=== PATIENT | female | born 1945 | race Caucasian/White ===

== ENCOUNTER 2023-11-22 16:28 | Inpatient (IN) | payer MEDICARE, SELFPAY ==
--- NOTE | ~2023-11-22 | CT_ITS ---
EXAMINATION: CT HEAD WITHOUT CONTRAST CLINICAL INFORMATION: Unwitnessed mechanical fall. Blunt head trauma without loss of consciousness, significant head injury and posttraumatic headache. COMPARISON: None available. TECHNIQUE: Contiguous axial imaging was performed from the skull base to vertex without intravenous administration of contrast. This CT examination was performed using dose optimization techniques as appropriate, variously including the following: *Automated exposure control *Adjustment of mA and/or kV according to patient size (this includes techniques or standardized protocols for targeted exams where dose is matched to indication/reason for exam; i.e. extremities or head) *Use of iterative reconstruction technique DLP: 789 mGy-cm FINDINGS: Ventricles, sulci and cisterns are dilated, including mild disproportional ventriculomegaly. Wedge-shaped chronic infarct is seen in inferior lateral left cerebellum. A parenchymal cyst is seen in anterior right temporal lobe, measuring 1.4 cm in AP diameter, 1.0 cm in width, 1.0 cm in vertical height. . There is no midline shift, no abnormal intra- or extra- axial fluid accumulation. Lyles and white matter differentiation is normal. Bone window images show no evidence of skull fracture. CT/CT head/brain wo IV con IMPRESSION: 1. Age related cerebral atrophy and mild disproportional ventriculomegaly. 2. No intracranial hemorrhage or skull fracture is seen. 3. No evidence of space occupying lesion could be found. 4. Chronic inferior lateral left cerebellar infarct. 5. 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 6. The current plain CT scan of the brain shows no diagnostic evidence of acute cerebral infarction. Electronically signed by: William Carlisle MD 11/23/2023 03:52 PM EDT
--- NOTE | ~2023-11-22 | CT_ITS ---
EXAMINATION: CT CERVICAL SPINE WITHOUT CONTRAST CLINICAL INFORMATION: Unwitnessed mechanical fall, neck injury and pain COMPARISON: None available. TECHNIQUE: Multiple 2.0 mm axial images were obtained from base of skull to T1 levels without IV contrast enhancement. Sagittal and coronal 2.0 mm bone window images were reconstructed from axial image data. This CT examination was performed using dose optimization techniques as appropriate, variously including the following: *Automated exposure control *Adjustment of mA and/or kV according to patient size (this includes techniques or standardized protocols for targeted exams where dose is matched to indication/reason for exam; i.e. extremities or head) *Use of iterative reconstruction technique DLP: 283 mGy-cm FINDINGS: C1/C2: Bony structures are intact with normal alignment. There is no spinal stenosis. C2/C3: Bony structures are intact with normal alignment. There is no spinal stenosis. Bilateral C2/C3 neuroforamina are patent. Bilateral apophyseal joints are intact with normal alignment. C3/C4: Bony structures are intact with normal alignment. There is no spinal stenosis. Bilateral C3/C4 neuroforamina are patent. Bilateral apophyseal joints are intact with normal alignment. C4/C5: Bony structures are intact with normal alignment. There is no spinal stenosis. Bilateral C4/C5 neuroforamina are patent. Bilateral apophyseal joints are intact with normal alignment. C5/C6: Bony structures are intact with normal alignment. There is moderate decrease in intervertebral disc height. There is no spinal stenosis. Bilateral C5/C6 neuroforamina are mildly stenosed. Bilateral apophyseal joints are intact with normal alignment. C6/C7: Bony structures are intact with normal alignment. There there is marked decrease in intervertebral disc heights. Is no spinal stenosis. Bilateral C6/C7 neuroforamina are patent. Bilateral apophyseal joints are intact with normal alignment. C7/T1: Bony structures are intact with normal alignment. There is no spinal stenosis. Bilateral C7/T1 neuroforamina are patent. Bilateral apophyseal joints are intact with normal alignment. CT/CT cervical spine wo IV con IMPRESSION: 1. No evidence of acute fracture or dislocation. 2. Moderate degenerative disc disease at C5/C6 and C6/C7. 3. Mild bilateral C5/C6 neural foraminal stenosis. Fleischner guidelines were followed. Electronically signed by: William Carlisle MD 11/23/2023 04:05 PM EDT RP
--- NOTE | ~2023-11-22 | XR_ITS ---
EXAMINATION: XR BILATERAL HIPS WITH AP PELVIS CLINICAL INFORMATION: Unwitnessed mechanical fall COMPARISON: None available. TECHNIQUE: AP view of the pelvis and single views of each hip were obtained. FINDINGS: BONES: Bony structures are intact. There is no focal bone destruction or periosteal reaction seen. JOINTS: Alignment of hip joint is normal. SOFT TISSUE: Soft tissue is normal. No radiopaque foreign body or abnormal air collection is seen. XR/XR hips ARI min 3V IMPRESSION: 1. Normal pelvis x-ray. No fracture or dislocation is seen. 2. Normal x-ray of the right and left hips. No fracture or dislocation or signs of avascular necrosis are seen. Electronically signed by: William Carlisle MD 11/23/2023 03:21 PM EDT
[2023-11-22 17:42] VITALS: BMI 24.0
[2023-11-22 17:43] VITALS: BP 133/92; PULSE 100; RESP 18; TEMP 36.4; O2SAT 96
--- NOTE | 2023-11-22 18:11 | HO.PM.IMCN ---
History of Present Illness Data of Consult Service Date: 11/22/23 Primary Care Provider: Adrian Mata [facility] Reason for consult: Admission H&P Pt is a 78-year-old female with a PMH significant for?schizoaffective disorder, bipolar type, history of multiple inpatient psychiatric hospitalizations, and hx of ECT who is admitted to [facility] after initially presenting to [facility] from assisted living where she had been refusing her medications and having increased verbal agitation with residents and staff. Patient was eventually placed on section 12. Throughout admission patient repeatedly declined medications and was verbally and physically aggressive towards staff and eventually had to be placed in physical restraints. Guardianship was aborted to her brother. Medical consult for admission H&P. ?Patient seen and examined in her room where she initially becomes agitated that there is no TV in her room. During interview and exam repeatedly asks if she can get a TV in her room. When told that that is not a possibility she states she is going to leave and go to a different facility where this is allowed. Patient denies any significant PMH and states she is not on any chronic medical prescriptions. Is unable to state when last saw a PCP for a regular checkup. Patient denies any acute medical complaints, including fever, chills, nausea, vomiting. No chest pain/pressure, palpitations. Denies shortness of breath or difficulty breathing. Labs from [facility] reviewed, grossly unremarkable at time of discharge. Review of Systems Review of Systems: Patient denies any acute medical complaints [facility] Medical History (Updated 11/22/23 @ 18:57 by NOY Arnold) Schizoaffective disorder Social History Household Members: None Housing: Assisted Living Facility Do you presently have visiting nurse or other home services: No Patient Tobacco Use Status: Never used Tobacco Smoked in Last 30 Days: No e-Cigarette/Vaping Use: Never Used Patient Interested in Nicotine Replacement: No Patient Given Instructions on How to Stop Smoking: No Second Hand Smoke Exposure: No Use of substances other than those prescribed or required for medical reasons: No Currently Displaying Signs/Symptoms of Drug Intoxication Withdrawal: No Any prior treatment program specific to substance use: No Have you been hit, kicked, punched, or otherwise hurt by someone within the past year? If so, by whom?: No Do you feel safe in your current relationship?: No Current Relationship Is there a partner from a previous relationship who is making you feel unsafe now?: No Are you made to feel afraid or neglected: No Advance Directives: No Advance Directives Information Provided: No Do you have a plan to hurt others: No Plan Recently lost weight without trying: Yes How much weight loss: 2-13 pounds Eating poorly because of decreased appetite: No Nutrition screen score: 3 Nutrition Risks: No Nutritional Risk Patient : No : No Poor oral hygiene: Yes Meds Allergies Allergy/AdvReac Type Severity Reaction Status Date / Time No Known Allergies Allergy Verified 11/22/23 16:59 Active Medications: Current Medications Acetaminophen (Acetaminophen 325 Mg Tablet) 650 mg PO Q6H PRN PRN Reason: Headache/Pain Mild Scale (1-3) Al Hydroxide/Mg Hydroxide (Magnesium Hydrox/Alum Hydrox 30 Ml Oral.Susp) 30 ml PO Q6H PRN PRN Reason: Heartburn/Nausea Magnesium Hydroxide (Milk Of Magnesia 30 Ml Oral.Susp) 30 ml PO DAILY PRN PRN Reason: Constipation Nicotine Polacrilex (Nicotine Polacrilex 2 Mg Gum) 2 mg BUCCAL Q2H PRN PRN Reason: Nicotine Cravings Trazodone HCl (Trazodone Hcl 50 Mg Tablet) 50 mg PO BEDTIME MRX1 PRN PRN Reason: Insomnia Home Medications ?Medication ?Instructions ?Recorded ?Confirmed ?Last Taken ?Type atorvastatin 40 mg tablet (Lipitor) 40 mg PO DAILY 11/22/23 11/22/23 Unknown History cetirizine 5 mg tablet 5 mg PO DAILY 11/22/23 11/22/23 Unknown History diphenhydramine HCl 25 mg capsule 25 mg PO Q6H PRN Itching 11/22/23 11/22/23 Unknown History (Benadryl) olanzapine 10 mg disintegrating 10 mg PO BEDTIME 11/22/23 11/22/23 Unknown History tablet olanzapine 5 mg disintegrating 5 mg PO DAILY 11/22/23 11/22/23 Unknown History tablet permethrin 5 % topical cream 1 appl topical 11/22/23 Unknown History (Elimite) triamcinolone acetonide 0.1 % 1 appl topical BID 11/22/23 11/22/23 Unknown History topical ointment valproic acid (as sodium salt) 250 750 mg PO Q12H 11/22/23 11/22/23 11/22/23 09:46 History mg/5 mL (5 mL) oral solution Physical Exam Vital Signs and Narrative: Vital Signs: Last Vital Signs Temp 97.5 F 11/22/23 17:43 Pulse 100 11/22/23 17:43 Resp 18 11/22/23 17:43 BP 133/92 H 11/22/23 17:43 Pulse Ox 96 11/22/23 17:43 O2 Del Method Room Air 11/22/23 17:43 BMI result Body Mass Index 24.0 Patient refused physical examination General: AOx3, no acute distress Resp: Not in acute respiratory distress, no accessory muscle use Neuro: Cranial nerves II-XII grossly intact bilaterally. Motor grossly intact bilaterally Psych: Mildly agitated Assessment and Plan (1) Medical clearance for psychiatric admission: Status: Acute Plan Pt is a 78-year-old female with a PMH significant for?schizoaffective disorder, bipolar type, history of multiple inpatient psychiatric hospitalizations, and hx of ECT who is admitted to [facility] after initially presenting to [facility] from assisted living where she had been refusing her medications and having increased verbal agitation with residents and staff. Patient was eventually placed on section 12. Throughout admission patient repeatedly declined medications and was verbally and physically aggressive towards staff and eventually had to be placed in physical restraints. Guardianship was aborted to her brother. Medical consult for admission H&P. Mood disorder Plan as per Psychiatry Patient otherwise has no known chronic medical conditions nor voices any acute medical complaints at this time. Will sign off. Thank you for allowing us to participate in the care of this patient. Please re-consult if any acute issue or need arises.
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
--- NOTE | 2023-11-22 22:36 | HO.PSYEVENT2 ---
Documented by User: Cecilia Alvarez APRN 11/22/23 22:37 Event Note Date of Service: 11/22/23 Psych On-Call Event Note: Ramy's order for Olanzapine implemented, PO or IM. Humberto to Feb 2024. Time Spent With Patient Time: Total time managing care of this patient today ____ minutes. Documented by User: Jose Mott MD 11/22/23 23:08 Event Note Date of Service: 11/22/23
[2023-11-22] MEDS: OLANZapine 10 MG VIAL IM (22:57)
--- NOTE | 2023-11-23 03:06 | PC.NURSE ---
Patient refused HS medication, refused Vital sign assessment, refused to sign belonging list, safety tool, treatment plan, and Notice of Rights for Temporary Involuntary Hospitalization. Patient has kacie Mccann's order, copy sent to communications scientist provider, ordered PRN Olanzapine 10 mg IM if patient refused HS PO Olanzapine 10 mg, administered as ordered with staffing support to stabilize injection site, will continue to monitor
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
[2023-11-23] MEDS: OLANZapine 10 MG VIAL 7.5 MG IM (10:02)
[2023-11-23 11:35] VITALS: BP 157/73; PULSE 104; RESP 20; TEMP 36.3; O2SAT 100
[2023-11-23 13:00] LABS: Glucose, Whole Blood 135 mg/dL (60-115)
--- NOTE | 2023-11-23 13:03 | PM.EVENT ---
Event Note Date of Service: 11/23/23 Event Note: Patient is a 78-year-old female who was admitted to [facility]. Rapid response called for unwitnessed fall in room. Patient reports she was was leaving the bathroom and ?rushing? to get to her walker when she slipped and fell backwards striking the back. Of her head on the wall patient reports mild occipital pain. Denies any neck, shoulder, hip pain. Patient denies any other musculoskeletal pain except for back of her head. No lightheadedness or dizziness preceding fall. Physical exam reveals preserved ROM of shoulders and hips. No tenderness to palpation of shoulders or hips bilaterally. Will get CT of head/brain and cervical spine, as well as x-ray of hips bilaterally. Will check orthostatics. Time Spent With Patient Time: Total time managing care of this patient today ____ minutes.
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
[2023-11-23 13:45] VITALS: BP 142/63; PULSE 84
--- NOTE | 2023-11-23 14:36 | PC.NURSE ---
Addendum entered and electronically signed by Nurys Dupree RN 11/23/23 14:59: Close observation initiated. Original Note: Loud noise heard from room followed by pt calling out from room. Pt found sitting on floor with back of head resting against wall. Pt reported she had been attempting to gunter to her walker which was next to her bed, and fell backwards towards wall. States she struck back of head against wall and slid down to floor. Initially reported headache and back of neck discomfort. Rapid response called and participating staff arrived on unit at 1250. VS 133/63, P 107, O2 stat 97% rm air. POC 135. Collar applied to neck by respiratory. Transferred to stretcher with assist of [address] scan of head, cervical spine, xrays bilateral hips completed, results pending. Orthostatic VS done upon return to unit. VS right upper arm supine 142/63 P 84 O2 Sat 95% rm air, sitting 140/65 P 87, O2 sat 97% rm air, standing 136/62 P 98 O2 sat% rm air. Reported slight unsteadiness upon standing. Denied pain at time of return to unit. Collar remains on until results available, pt compliant with this. plant operations coordinator, community outreach worker and director present at time of rapid response, aware of fall. Pt to be placed on 1:1 observation.
[2023-11-23] MEDS: Acetaminophen 325 MG TABLET 650 MG PO (15:09)
--- NOTE | 2023-11-23 18:33 | PC.NURSE ---
Adam Khan, updated on mood, meds administered today, fall, CT scan/xray results.
[2023-11-23] MEDS: OLANZapine 10 MG TABLET PO (19:52)
[2023-11-23] MEDS: Valproic Acid 250 MG CAPSULE 750 MG PO (19:52)
[2023-11-23] MEDS: Triamcinolone Acet 0.1 % Cream 15 GM TUBE 1 APPL TOPICAL (19:57)
[2023-11-23 20:00] VITALS: BP 119/60; PULSE 60; RESP 17; TEMP 36.6; O2SAT 95
[2023-11-24] MEDS: OLANZapine 10 MG VIAL IM (10:00)
--- NOTE | 2023-11-24 17:53 | HO.PSYCHPN ---
Subjective Subjective Date of Service: 11/24/23 Reason For Visit: psychosis Interim History: Met with patient; discussed with team Patient irritable, continues to refuse Zyprexa p.o. and has been receiving Zyprexa IM.; remains on a one-to-one for confusion. Yelling out rape intermittently throughout the day. Sleeping on approach and technical proposal writer considered it in patient's best interest to let her sleep Mental Status Exam Mental Status Exam Narrative: Appearance: wearing casual clothing, appears older than stated age. IN NAD Behavior: very guarded and hostile Psychomotor: some agitation Speech: clear, hyperverbal not pressured, spontaneous TP: Can be goal oriented TC: wanting to leave the hospital paranoid about staff here Mood: Irritable Affect: Irritable SI: denies HI: denies VH/AH: appears internally preoccupied Delusions: paranoid delusions, Insight/judgment: impaired x 2. memory/cog: alert, oriented x 3. pending moca Diagnostics Vital Signs (24Hr): Vital Signs - 24 hr 11/23/23 20:00 Temperature 97.8 F Pulse Rate 60 Respiratory Rate 17 Blood Pressure 119/60 Pulse Oximetry 95 Oxygen Delivery Method Room Air BMI result Body Mass Index 24.0 Labs Labs: Laboratory Results - last 48 hr 11/23/23 12:53 POC Glucose 135 H Imaging Radiology Impressions: ITS Impressions Hip X-Ray 11/23/23 13:10 IMPRESSION: 1. Normal pelvis x-ray. No fracture or dislocation is seen. 2. Normal x-ray of the right and left hips. No fracture or dislocation or signs of avascular necrosis are seen. Electronically signed by: William Calrisle MD 11/23/2023 03:21 PM EDT RP Cervical Spine CT 11/23/23 13:27 IMPRESSION: 1. No evidence of acute fracture or dislocation. 2. Moderate degenerative disc disease at C5/C6 and C6/C7. 3. Mild bilateral C5/C6 neural foraminal stenosis. Fleischner guidelines were followed. Electronically signed by: William Carlisle MD 11/23/2023 04:05 PM EDT RP Head CT 11/23/23 13:27 IMPRESSION: 1. Age related cerebral atrophy and mild disproportional ventriculomegaly. 2. No intracranial hemorrhage or skull fracture is seen. 3. No evidence of space occupying lesion could be found. 4. Chronic inferior lateral left cerebellar infarct. 5. 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 6. The current plain CT scan of the brain shows no diagnostic evidence of acute cerebral infarction. Electronically signed by: William Carlisle MD 11/23/2023 03:52 PM EDT Medications Medications Current Medications Acetaminophen (Acetaminophen 325 Mg Tablet) 650 mg PO Q6H PRN PRN Reason: Headache/Pain Mild Scale (1-3) Last Admin: 11/23/23 15:09 Dose: 650 mg Al Hydroxide/Mg Hydroxide (Magnesium Hydrox/Alum Hydrox 30 Ml Oral.Susp) 30 ml PO Q6H PRN PRN Reason: Heartburn/Nausea Atorvastatin Calcium (Atorvastatin Calcium 40 Mg Tablet) 40 mg PO DAILY [facility] Last Admin: 11/24/23 10:05 Dose: Not Given Loratadine (Loratadine 10 Mg Tablet) 10 mg PO DAILY [facility] Last Admin: 11/24/23 10:05 Dose: Not Given Magnesium Hydroxide (Milk Of Magnesia 30 Ml Oral.Susp) 30 ml PO DAILY PRN PRN Reason: Constipation Nicotine Polacrilex (Nicotine Polacrilex 2 Mg Gum) 2 mg BUCCAL Q2H PRN PRN Reason: Nicotine Cravings Olanzapine (Olanzapine 10 Mg Vial) 10 mg IM BID PRN PRN Reason: Paul order if po refused Last Admin: 11/24/23 10:00 Dose: 10 mg Olanzapine (Olanzapine 10 Mg Tablet) 10 mg PO BID [facility] Last Admin: 11/24/23 10:04 Dose: Not Given Trazodone HCl (Trazodone Hcl 50 Mg Tablet) 50 mg PO BEDTIME MRX1 PRN PRN Reason: Insomnia Triamcinolone Acetonide (Triamcinolone Acet 0.1 % Cream 15 Gm Tube) 1 appl TOPICAL BID [facility]; Protocol Last Admin: 11/24/23 10:05 Dose: Not Given Valproic Acid (Valproic Acid 250 Mg Capsule) 750 mg PO BID [facility] Last Admin: 11/24/23 10:05 Dose: Not Given Allergies Allergies Allergy/AdvReac Type Severity Reaction Status Date / Time No Known Allergies Allergy Verified 11/22/23 16:59 Assessment & Plan Assessment & Plan (1) Schizoaffective disorder, bipolar type: Status: Acute Code(s): F25.0 - Schizoaffective disorder, bipolar type Plan Mrs. Reid is a 78 year-old woman with hx of schizoaffective disorder bipolar type who was brought on section 12a from [facility] to [facility] due to 3 week increase in verbal agitation, paranoid delusions, calling police and refusing care in setting of stopping medications. She has temporary guardian- Adam Rod ([phone]) and Ramy'madhav. She is currently on depakote and olanzapine after coming off haldol due to limited benefit. Increase olanzapine 10mg po BID. continue depakote 750mg po BID. PLAN 1. Admit to S1, [id number], 5 minutes checks 2. increase olanzapine 10mg po BID- pt can't refused due to Ramy's, back up IM if needed 3. obtain collateral information 4. after care planning. Reason for continued inpatient stay Substantial Risk for: inability to function Time Spent With Patient Time: Total time managing care of this patient today ____ minutes.
[2023-11-24] MEDS: traZODone HCL 50 MG TABLET PO (20:13)
[2023-11-24] MEDS: OLANZapine 10 MG TABLET PO (20:13)
[2023-11-25] MEDS: Atorvastatin Calcium 40 MG TABLET PO (08:49)
[2023-11-25] MEDS: Loratadine 10 MG TABLET PO (08:49)
[2023-11-25 08:52] VITALS: BP 117/74; PULSE 85; RESP 16; TEMP 36.6; O2SAT 99
[2023-11-25] MEDS: OLANZapine 10 MG VIAL IM (09:06)
--- NOTE | 2023-11-25 18:36 | HO.PSYCHPN ---
Subjective Subjective Date of Service: 11/25/23 Reason For Visit: psychosis Interim History: Met with patient; discussed with team Patient remains irritable and refusing p.o. Zyprexa. Getting IM Zyprexa instead. On approach she said she has not good and demanded to know why she was in the hospital; patient had court order printed out and wanted to talk about it. Picker/Puller set down and talked about it with patient extensively, including medication regimen. During which time her irritability softened and she expressed gratitude for having it explained. Of note patient was a little more calm during the day, not yelling out rape. Self dialogue Ng throughout the day Mental Status Exam Mental Status Exam Narrative: Appearance: wearing casual clothing, appears older than stated age. IN NAD Behavior: very guarded and hostile Psychomotor: some agitation Speech: clear, hyperverbal not pressured, spontaneous TP: Can be goal oriented TC: wanting to leave the hospital paranoid about staff here Mood: not good Affect: Irritable SI: denies HI: denies VH/AH: appears internally preoccupied Delusions: paranoid delusions, Insight/judgment: impaired x 2. memory/cog: alert, oriented x 3. pending moca Diagnostics Vital Signs (24Hr): Vital Signs - 24 hr 11/25/23 08:52 Temperature 97.8 F Pulse Rate 85 Respiratory Rate 16 Blood Pressure 117/74 Pulse Oximetry 99 Oxygen Delivery Method Room Air BMI result Body Mass Index 24.0 Imaging Radiology Impressions: ITS Impressions Hip X-Ray 11/23/23 13:10 IMPRESSION: 1. Normal pelvis x-ray. No fracture or dislocation is seen. 2. Normal x-ray of the right and left hips. No fracture or dislocation or signs of avascular necrosis are seen. Electronically signed by: William Carlisle MD 11/23/2023 03:21 PM EDT RP Cervical Spine CT 11/23/23 13:27 IMPRESSION: 1. No evidence of acute fracture or dislocation. 2. Moderate degenerative disc disease at C5/C6 and C6/C7. 3. Mild bilateral C5/C6 neural foraminal stenosis. Fleischner guidelines were followed. Electronically signed by: William Carlisle MD 11/23/2023 04:05 PM EDT RP Head CT 11/23/23 13:27 IMPRESSION: 1. Age related cerebral atrophy and mild disproportional ventriculomegaly. 2. No intracranial hemorrhage or skull fracture is seen. 3. No evidence of space occupying lesion could be found. 4. Chronic inferior lateral left cerebellar infarct. 5. 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 6. The current plain CT scan of the brain shows no diagnostic evidence of acute cerebral infarction. Electronically signed by: William Carlisle MD 11/23/2023 03:52 PM EDT Medications Medications Current Medications Acetaminophen (Acetaminophen 325 Mg Tablet) 650 mg PO Q6H PRN PRN Reason: Headache/Pain Mild Scale (1-3) Last Admin: 11/23/23 15:09 Dose: 650 mg Al Hydroxide/Mg Hydroxide (Magnesium Hydrox/Alum Hydrox 30 Ml Oral.Susp) 30 ml PO Q6H PRN PRN Reason: Heartburn/Nausea Atorvastatin Calcium (Atorvastatin Calcium 40 Mg Tablet) 40 mg PO DAILY [facility] Last Admin: 11/25/23 08:49 Dose: 40 mg Loratadine (Loratadine 10 Mg Tablet) 10 mg PO DAILY [facility] Last Admin: 11/25/23 08:49 Dose: 10 mg Magnesium Hydroxide (Milk Of Magnesia 30 Ml Oral.Susp) 30 ml PO DAILY PRN PRN Reason: Constipation Nicotine Polacrilex (Nicotine Polacrilex 2 Mg Gum) 2 mg BUCCAL Q2H PRN PRN Reason: Nicotine Cravings Olanzapine (Olanzapine 10 Mg Vial) 10 mg IM BID PRN PRN Reason: Paul order if po refused Last Admin: 11/25/23 09:06 Dose: 10 mg Olanzapine (Olanzapine 10 Mg Tablet) 10 mg PO BID [facility] Last Admin: 11/25/23 09:09 Dose: Not Given Trazodone HCl (Trazodone Hcl 50 Mg Tablet) 50 mg PO BEDTIME MRX1 PRN PRN Reason: Insomnia Last Admin: 11/24/23 20:13 Dose: 50 mg Triamcinolone Acetonide (Triamcinolone Acet 0.1 % Cream 15 Gm Tube) 1 appl TOPICAL BID [facility]; Protocol Last Admin: 11/25/23 11:32 Dose: Not Given Valproic Acid (Valproic Acid 250 Mg Capsule) 750 mg PO BID [facility] Last Admin: 11/25/23 08:51 Dose: Not Given Allergies Allergies Allergy/AdvReac Type Severity Reaction Status Date / Time No Known Allergies Allergy Verified 11/22/23 16:59 Assessment & Plan Assessment & Plan (1) Schizoaffective disorder, bipolar type: Status: Acute Code(s): F25.0 - Schizoaffective disorder, bipolar type Plan Mrs. Reid is a 78 year-old woman with hx of schizoaffective disorder bipolar type who was brought on section 12a from [facility] to [facility] due to 3 week increase in verbal agitation, paranoid delusions, calling police and refusing care in setting of stopping medications. She has temporary guardian- Adam Rod ([phone]) and Ramy'madhav. She is currently on depakote and olanzapine after coming off haldol due to limited benefit. Increase olanzapine 10mg po BID. continue depakote 750mg po BID. PLAN 1. Admit to S1, [id number], 5 minutes checks 2. increase olanzapine 10mg po BID- pt can't refused due to Ramy's, back up IM if needed 3. obtain collateral information 4. after care planning. Patient educated on: diagnosis and medication risk/benefits Informed Consent: understands, does not understand and further education needed Reason for continued inpatient stay Substantial Risk for: inability to function Time Spent With Patient Time: Total time managing care of this patient today ____ minutes.
[2023-11-25] MEDS: Valproic Acid 250 MG CAPSULE 750 MG PO (20:20)
[2023-11-25] MEDS: OLANZapine 10 MG TABLET PO (20:20)
[2023-11-25 20:36] VITALS: BP 130/61; PULSE 75; RESP 16; TEMP 36.3; O2SAT 95
[2023-11-26 09:05] VITALS: BP 118/72; PULSE 86; RESP 17; TEMP 36.5; O2SAT 96
[2023-11-26] MEDS: OLANZapine 10 MG TABLET PO ×2 (09:18→20:17)
--- NOTE | 2023-11-26 09:33 | HO.PSYCHPN ---
Subjective Subjective Date of Service: 11/26/23 Reason For Visit: psychosis Subjective Notes: Section 12B Interim History: Slept all night. Pt hyperverbal stating that her brother exposed to her and friend when she was 13. Pt denies SI/HI. She reports she does not know why she is diagnosed with Bipolar disorder because she does not notice any symptoms. No insight into events leading to this admission and how her behavior is disruptive. Pt labile at times, firing this marketing copywriter but then asking if I will continue working with her. Somewhat paranoid towards staff. Review of Systems Review of Systems declines assessment Mental Status Exam Mental Status Exam Narrative: Appearance: wearing casual clothing, appears older than stated age. IN NAD Behavior: very guarded and hostile Psychomotor: some agitation Speech: clear, hyperverbal not pressured, spontaneous TP: Can be goal oriented TC: wanting to leave the hospital paranoid about staff here Mood: not good Affect: Irritable SI: denies HI: denies VH/AH: appears internally preoccupied Delusions: paranoid delusions, Insight/judgment: impaired x 2. memory/cog: alert, oriented x 3. pending moca Diagnostics Vital Signs (24Hr): Vital Signs - 24 hr 11/25/23 20:36 11/26/23 09:05 Temperature 97.3 F 97.7 F Pulse Rate 75 86 Respiratory Rate 16 17 Blood Pressure 130/61 118/72 Pulse Oximetry 95 96 Oxygen Delivery Method Room Air Room Air BMI result Body Mass Index 24.0 Imaging Radiology Impressions: ITS Impressions Hip X-Ray 11/23/23 13:10 IMPRESSION: 1. Normal pelvis x-ray. No fracture or dislocation is seen. 2. Normal x-ray of the right and left hips. No fracture or dislocation or signs of avascular necrosis are seen. Electronically signed by: William Carlisle MD 11/23/2023 03:21 PM EDT RP Cervical Spine CT 11/23/23 13:27 IMPRESSION: 1. No evidence of acute fracture or dislocation. 2. Moderate degenerative disc disease at C5/C6 and C6/C7. 3. Mild bilateral C5/C6 neural foraminal stenosis. Fleischner guidelines were followed. Electronically signed by: William Carlisle MD 11/23/2023 04:05 PM EDT RP Head CT 11/23/23 13:27 IMPRESSION: 1. Age related cerebral atrophy and mild disproportional ventriculomegaly. 2. No intracranial hemorrhage or skull fracture is seen. 3. No evidence of space occupying lesion could be found. 4. Chronic inferior lateral left cerebellar infarct. 5. 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 6. The current plain CT scan of the brain shows no diagnostic evidence of acute cerebral infarction. Electronically signed by: William Carlisle MD 11/23/2023 03:52 PM EDT Medications Medications Current Medications Acetaminophen (Acetaminophen 325 Mg Tablet) 650 mg PO Q6H PRN PRN Reason: Headache/Pain Mild Scale (1-3) Last Admin: 11/23/23 15:09 Dose: 650 mg Al Hydroxide/Mg Hydroxide (Magnesium Hydrox/Alum Hydrox 30 Ml Oral.Susp) 30 ml PO Q6H PRN PRN Reason: Heartburn/Nausea Atorvastatin Calcium (Atorvastatin Calcium 40 Mg Tablet) 40 mg PO DAILY [facility] Last Admin: 11/26/23 09:19 Dose: Not Given Loratadine (Loratadine 10 Mg Tablet) 10 mg PO DAILY [facility] Last Admin: 11/26/23 09:19 Dose: Not Given Magnesium Hydroxide (Milk Of Magnesia 30 Ml Oral.Susp) 30 ml PO DAILY PRN PRN Reason: Constipation Nicotine Polacrilex (Nicotine Polacrilex 2 Mg Gum) 2 mg BUCCAL Q2H PRN PRN Reason: Nicotine Cravings Olanzapine (Olanzapine 10 Mg Vial) 10 mg IM BID PRN PRN Reason: Paul order if po refused Last Admin: 11/25/23 09:06 Dose: 10 mg Olanzapine (Olanzapine 10 Mg Tablet) 10 mg PO BID [facility] Last Admin: 11/26/23 09:18 Dose: 10 mg Trazodone HCl (Trazodone Hcl 50 Mg Tablet) 50 mg PO BEDTIME MRX1 PRN PRN Reason: Insomnia Last Admin: 11/24/23 20:13 Dose: 50 mg Triamcinolone Acetonide (Triamcinolone Acet 0.1 % Cream 15 Gm Tube) 1 appl TOPICAL BID [facility]; Protocol Last Admin: 11/26/23 09:19 Dose: Not Given Valproic Acid (Valproic Acid 250 Mg Capsule) 750 mg PO BID [facility] Last Admin: 11/26/23 09:19 Dose: Not Given Allergies Allergies Allergy/AdvReac Type Severity Reaction Status Date / Time No Known Allergies Allergy Verified 11/22/23 16:59 Assessment & Plan Assessment & Plan (1) Schizoaffective disorder, bipolar type: Status: Acute Code(s): F25.0 - Schizoaffective disorder, bipolar type Plan Mrs. Reid is a 78 year-old woman with hx of schizoaffective disorder bipolar type who was brought on section 12a from [facility] to [facility] due to 3 week increase in verbal agitation, paranoid delusions, calling police and refusing care in setting of stopping medications. She has temporary guardian- Adam Rod ([phone]) and Ramy'madhav. She is currently on depakote and olanzapine after coming off haldol due to limited benefit. Increase olanzapine 10mg po BID. continue depakote 750mg po BID. PLAN 1. Admit to S1, [id number], 5 minutes checks 2. continue olanzapine 10mg po BID- pt can't refused due to Ramy's, back up IM if needed Reason for continued inpatient stay Substantial Risk for: inability to function Time Spent With Patient Time: Total time managing care of this patient today ____ minutes.
[2023-11-26 20:00] VITALS: BP 123/78; PULSE 83; RESP 16; TEMP 36.2; O2SAT 97
--- NOTE | 2023-11-27 09:07 | HO.PSYCHPN ---
Subjective Subjective Date of Service: 11/27/23 Reason For Visit: psychosis Subjective Notes: Section 7 Interim History: Slept all night. Pt presents as hyperverbal, tangential, very disorganized thought process and difficult to follow. She goes over her status here on the unit. Difficult to interrupt to provide information about sect 12b and fact that given that she continues to present with labile mood, paranoid towards people around her. She continues to report that she is not Bipolar nor she needs medications. Review of Systems Review of Systems declines assessment Mental Status Exam Mental Status Exam Narrative: Appearance: wearing casual clothing, appears older than stated age. IN NAD Behavior: very guarded and hostile Psychomotor: some agitation Speech: clear, hyperverbal not pressured, spontaneous TP: Can be goal oriented TC: wanting to leave the hospital paranoid about staff here Mood: not good Affect: Irritable SI: denies HI: denies VH/AH: none Delusions: paranoid delusions, Insight/judgment: impaired x 2. memory/cog: alert, oriented x 3. pending moca Diagnostics Vital Signs (24Hr): Vital Signs - 24 hr 11/26/23 20:00 Temperature 97.2 F Pulse Rate 83 Respiratory Rate 16 Blood Pressure 123/78 Pulse Oximetry 97 Oxygen Delivery Method Room Air BMI result Body Mass Index 24.0 Imaging Radiology Impressions: ITS Impressions Hip X-Ray 11/23/23 13:10 IMPRESSION: 1. Normal pelvis x-ray. No fracture or dislocation is seen. 2. Normal x-ray of the right and left hips. No fracture or dislocation or signs of avascular necrosis are seen. Electronically signed by: William Carlisle MD 11/23/2023 03:21 PM EDT RP Cervical Spine CT 11/23/23 13:27 IMPRESSION: 1. No evidence of acute fracture or dislocation. 2. Moderate degenerative disc disease at C5/C6 and C6/C7. 3. Mild bilateral C5/C6 neural foraminal stenosis. Fleischner guidelines were followed. Electronically signed by: William Carlisle MD 11/23/2023 04:05 PM EDT RP Head CT 11/23/23 13:27 IMPRESSION: 1. Age related cerebral atrophy and mild disproportional ventriculomegaly. 2. No intracranial hemorrhage or skull fracture is seen. 3. No evidence of space occupying lesion could be found. 4. Chronic inferior lateral left cerebellar infarct. 5. 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 6. The current plain CT scan of the brain shows no diagnostic evidence of acute cerebral infarction. Electronically signed by: William Carlisle MD 11/23/2023 03:52 PM EDT RP Medications Medications Current Medications Acetaminophen (Acetaminophen 325 Mg Tablet) 650 mg PO Q6H PRN PRN Reason: Headache/Pain Mild Scale (1-3) Last Admin: 11/23/23 15:09 Dose: 650 mg Al Hydroxide/Mg Hydroxide (Magnesium Hydrox/Alum Hydrox 30 Ml Oral.Susp) 30 ml PO Q6H PRN PRN Reason: Heartburn/Nausea Atorvastatin Calcium (Atorvastatin Calcium 40 Mg Tablet) 40 mg PO DAILY [facility] Last Admin: 11/26/23 09:19 Dose: Not Given Loratadine (Loratadine 10 Mg Tablet) 10 mg PO DAILY [facility] Last Admin: 11/26/23 09:19 Dose: Not Given Magnesium Hydroxide (Milk Of Magnesia 30 Ml Oral.Susp) 30 ml PO DAILY PRN PRN Reason: Constipation Nicotine Polacrilex (Nicotine Polacrilex 2 Mg Gum) 2 mg BUCCAL Q2H PRN PRN Reason: Nicotine Cravings Olanzapine (Olanzapine 10 Mg Vial) 10 mg IM BID PRN PRN Reason: Paul order if po refused Last Admin: 11/25/23 09:06 Dose: 10 mg Olanzapine (Olanzapine 10 Mg Tablet) 10 mg PO BID [facility] Last Admin: 11/26/23 20:17 Dose: 10 mg Trazodone HCl (Trazodone Hcl 50 Mg Tablet) 50 mg PO BEDTIME MRX1 PRN PRN Reason: Insomnia Last Admin: 11/24/23 20:13 Dose: 50 mg Triamcinolone Acetonide (Triamcinolone Acet 0.1 % Cream 15 Gm Tube) 1 appl TOPICAL BID [facility]; Protocol Last Admin: 11/26/23 22:06 Dose: Not Given Valproic Acid (Valproic Acid 250 Mg Capsule) 750 mg PO BID [facility] Last Admin: 11/26/23 22:07 Dose: Not Given Allergies Allergies Allergy/AdvReac Type Severity Reaction Status Date / Time No Known Allergies Allergy Verified 11/22/23 16:59 Assessment & Plan Assessment & Plan (1) Schizoaffective disorder, bipolar type: Status: Acute Code(s): F25.0 - Schizoaffective disorder, bipolar type Plan Mrs. Reid is a 78 year-old woman with hx of schizoaffective disorder bipolar type who was brought on section 12a from [facility] to [facility] due to 3 week increase in verbal agitation, paranoid delusions, calling police and refusing care in setting of stopping medications. She has temporary guardian- Adam Rod ([phone]) and Keira. She is currently on depakote and olanzapine after coming off haldol due to limited benefit. Increase olanzapine 10mg po BID. continue depakote 750mg po BID. PLAN 11/26- filed for sect 7&8, continue current tx. pt refuses blood work, unable to check depakote levels. Reason for continued inpatient stay Substantial Risk for: harm to others and inability to function Time Spent With Patient Time: Total time managing care of this patient today ____ minutes.
[2023-11-27 09:11] VITALS: BP 118/77; PULSE 88; RESP 18; TEMP 36.2; O2SAT 95
[2023-11-27] MEDS: OLANZapine 10 MG TABLET PO (09:13)
[2023-11-27] MEDS: Atorvastatin Calcium 40 MG TABLET PO (09:13)
[2023-11-27 20:00] VITALS: BP 116/63; PULSE 89; RESP 18; TEMP 37.1; O2SAT 94
[2023-11-27] MEDS: OLANZapine 10 MG VIAL IM (21:28)
[2023-11-28 08:49] VITALS: BP 110/58; PULSE 108; RESP 15; TEMP 36.2; O2SAT 97
[2023-11-28] MEDS: Atorvastatin Calcium 40 MG TABLET PO (09:18)
[2023-11-28] MEDS: Loratadine 10 MG TABLET PO (09:18)
[2023-11-28] MEDS: OLANZapine 10 MG VIAL IM ×2 (09:20→22:15)
--- NOTE | 2023-11-28 10:13 | HO.PSYCHPN ---
Subjective Subjective Date of Service: 11/28/23 Reason For Visit: psychosis Subjective Notes: Section 7 Interim History: Slept all night. Pt continues to present as hyperverbal, tangential, very disorganized thought process and difficult to follow. Difficult to interrupt to provide information about sect 12b and fact that given that she continues to present with labile mood, paranoid towards people around her. She continues to report that she is not Bipolar nor she needs medications. Review of Systems Review of Systems declines assessment Mental Status Exam Mental Status Exam Narrative: Appearance: wearing casual clothing, appears older than stated age. IN NAD Behavior: very guarded and hostile Psychomotor: some agitation Speech: clear, hyperverbal not pressured, spontaneous TP: Can be goal oriented TC: wanting to leave the hospital paranoid about staff here Mood: not good Affect: Irritable SI: denies HI: denies VH/AH: none Delusions: paranoid delusions, Insight/judgment: impaired x 2. memory/cog: alert, oriented x 3. pending moca Diagnostics Vital Signs (24Hr): Vital Signs - 24 hr 11/27/23 20:00 11/28/23 08:49 Temperature 98.8 F 97.2 F Pulse Rate 89 108 H Respiratory Rate 18 15 Blood Pressure 116/63 110/58 L Pulse Oximetry 94 97 Oxygen Delivery Method Room Air Room Air BMI result Body Mass Index 24.0 Imaging Radiology Impressions: ITS Impressions Hip X-Ray 11/23/23 13:10 IMPRESSION: 1. Normal pelvis x-ray. No fracture or dislocation is seen. 2. Normal x-ray of the right and left hips. No fracture or dislocation or signs of avascular necrosis are seen. Electronically signed by: William Carlisle MD 11/23/2023 03:21 PM EDT RP Cervical Spine CT 11/23/23 13:27 IMPRESSION: 1. No evidence of acute fracture or dislocation. 2. Moderate degenerative disc disease at C5/C6 and C6/C7. 3. Mild bilateral C5/C6 neural foraminal stenosis. Fleischner guidelines were followed. Electronically signed by: William Carlisle MD 11/23/2023 04:[address] 11/23/23 13:27 IMPRESSION: 1. Age related cerebral atrophy and mild disproportional ventriculomegaly. 2. No intracranial hemorrhage or skull fracture is seen. 3. No evidence of space occupying lesion could be found. 4. Chronic inferior lateral left cerebellar infarct. 5. 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 6. The current plain CT scan of the brain shows no diagnostic evidence of acute cerebral infarction. Electronically signed by: William Carlisle MD 11/23/2023 03:52 PM EDT RP Medications Medications Current Medications Acetaminophen (Acetaminophen 325 Mg Tablet) 650 mg PO Q6H PRN PRN Reason: Headache/Pain Mild Scale (1-3) Last Admin: 11/23/23 15:09 Dose: 650 mg Al Hydroxide/Mg Hydroxide (Magnesium Hydrox/Alum Hydrox 30 Ml Oral.Susp) 30 ml PO Q6H PRN PRN Reason: Heartburn/Nausea Atorvastatin Calcium (Atorvastatin Calcium 40 Mg Tablet) 40 mg PO DAILY [facility] Last Admin: 11/28/23 09:18 Dose: 40 mg Loratadine (Loratadine 10 Mg Tablet) 10 mg PO DAILY [facility] Last Admin: 11/28/23 09:18 Dose: 10 mg Magnesium Hydroxide (Milk Of Magnesia 30 Ml Oral.Susp) 30 ml PO DAILY PRN PRN Reason: Constipation Nicotine Polacrilex (Nicotine Polacrilex 2 Mg Gum) 2 mg BUCCAL Q2H PRN PRN Reason: Nicotine Cravings Olanzapine (Olanzapine 10 Mg Vial) 10 mg IM BID PRN PRN Reason: Paul order if po refused Last Admin: 11/28/23 09:20 Dose: 10 mg Olanzapine (Olanzapine 10 Mg Tablet) 10 mg PO BID [facility] Last Admin: 11/28/23 09:17 Dose: Not Given Trazodone HCl (Trazodone Hcl 50 Mg Tablet) 50 mg PO BEDTIME MRX1 PRN PRN Reason: Insomnia Last Admin: 11/24/23 20:13 Dose: 50 mg Triamcinolone Acetonide (Triamcinolone Acet 0.1 % Cream 15 Gm Tube) 1 appl TOPICAL BID [facility]; Protocol Last Admin: 11/28/23 09:18 Dose: Not Given Valproic Acid (Valproic Acid 250 Mg Capsule) 750 mg PO BID [facility] Last Admin: 11/28/23 09:18 Dose: Not Given Allergies Allergies Allergy/AdvReac Type Severity Reaction Status Date / Time No Known Allergies Allergy Verified 11/22/23 16:59 Assessment & Plan Assessment & Plan (1) Schizoaffective disorder, bipolar type: Status: Acute Code(s): F25.0 - Schizoaffective disorder, bipolar type Plan Mrs. Reid is a 78 year-old woman with hx of schizoaffective disorder bipolar type who was brought on section 12a from [facility] to [facility] due to 3 week increase in verbal agitation, paranoid delusions, calling police and refusing care in setting of stopping medications. She has temporary guardian- Adam Rod ([phone]) and Ramy'madhav. She is currently on depakote and olanzapine after coming off haldol due to limited benefit. Increase olanzapine 10mg po BID. continue depakote 750mg po BID. PLAN 11/26- filed for sect 7&8, continue current tx. pt refuses blood work, unable to check depakote levels. 11/27 continue tx. Reason for continued inpatient stay Substantial Risk for: inability to function Time Spent With Patient Time: Total time managing care of this patient today ____ minutes.
[2023-11-29 07:00] VITALS: BMI 24.4
[2023-11-29 08:45] VITALS: BP 107/71; PULSE 102; RESP 20; TEMP 36.4; O2SAT 98
[2023-11-29] MEDS: OLANZapine 10 MG TABLET PO ×2 (08:57→20:04)
[2023-11-29] MEDS: Atorvastatin Calcium 40 MG TABLET PO (08:57)
[2023-11-29] MEDS: Loratadine 10 MG TABLET PO (08:57)
--- NOTE | 2023-11-29 11:06 | HO.PSYCHPN ---
Subjective Subjective Date of Service: 11/29/23 Reason For Visit: psychosis Interim History: irritable, rigid, demanding to know MD's middle name, which was declined. MD provided first and last name and badge for inspection. pt refused to engage with advertising writer unless he provided his middle name. per staff, psychotic. on section 7. anxious. refusing zyprexa PO, received it IM (ramy's). refusing VS, meds. Mental Status Exam Mental Status Exam Narrative: Appearance: wearing casual clothing, appears older than stated age. IN NAD Behavior: very guarded and hostile Psychomotor: some agitation Speech: clear, hyperverbal not pressured, spontaneous TP: Can be goal oriented TC: wanting to leave the hospital paranoid about staff here Mood: not assessed Affect: Irritable SI: none expressed HI: none expressed VH/AH: none expressed Delusions: paranoid delusions, Insight/judgment: impaired x 2. memory/cog: alert, oriented x 3. pending moca Diagnostics Vital Signs (24Hr): Vital Signs - 24 hr 11/29/23 08:45 Temperature 97.6 F Pulse Rate 102 H Respiratory Rate 20 Blood Pressure 107/71 Pulse Oximetry 98 Oxygen Delivery Method Room Air BMI result Body Mass Index 24.0 Imaging Radiology Impressions: ITS Impressions Hip X-Ray 11/23/23 13:10 IMPRESSION: 1. Normal pelvis x-ray. No fracture or dislocation is seen. 2. Normal x-ray of the right and left hips. No fracture or dislocation or signs of avascular necrosis are seen. Electronically signed by: William Carlisle MD 11/23/2023 03:21 PM EDT RP Cervical Spine CT 11/23/23 13:27 IMPRESSION: 1. No evidence of acute fracture or dislocation. 2. Moderate degenerative disc disease at C5/C6 and C6/C7. 3. Mild bilateral C5/C6 neural foraminal stenosis. Fleischner guidelines were followed. Electronically signed by: William Carlisle MD 11/23/2023 04:05 PM EDT RP Head CT 11/23/23 13:27 IMPRESSION: 1. Age related cerebral atrophy and mild disproportional ventriculomegaly. 2. No intracranial hemorrhage or skull fracture is seen. 3. No evidence of space occupying lesion could be found. 4. Chronic inferior lateral left cerebellar infarct. 5. 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 6. The current plain CT scan of the brain shows no diagnostic evidence of acute cerebral infarction. Electronically signed by: William Carlisle MD 11/23/2023 03:52 PM EDT Medications Medications Current Medications Acetaminophen (Acetaminophen 325 Mg Tablet) 650 mg PO Q6H PRN PRN Reason: Headache/Pain Mild Scale (1-3) Last Admin: 11/23/23 15:09 Dose: 650 mg Al Hydroxide/Mg Hydroxide (Magnesium Hydrox/Alum Hydrox 30 Ml Oral.Susp) 30 ml PO Q6H PRN PRN Reason: Heartburn/Nausea Atorvastatin Calcium (Atorvastatin Calcium 40 Mg Tablet) 40 mg PO DAILY [facility] Last Admin: 11/29/23 08:57 Dose: 40 mg Loratadine (Loratadine 10 Mg Tablet) 10 mg PO DAILY [facility] Last Admin: 11/29/23 08:57 Dose: 10 mg Magnesium Hydroxide (Milk Of Magnesia 30 Ml Oral.Susp) 30 ml PO DAILY PRN PRN Reason: Constipation Nicotine Polacrilex (Nicotine Polacrilex 2 Mg Gum) 2 mg BUCCAL Q2H PRN PRN Reason: Nicotine Cravings Olanzapine (Olanzapine 10 Mg Vial) 10 mg IM BID PRN PRN Reason: Paul order if po refused Last Admin: 11/28/23 22:15 Dose: 10 mg Olanzapine (Olanzapine 10 Mg Tablet) 10 mg PO BID [facility] Last Admin: 11/29/23 08:57 Dose: 10 mg Trazodone HCl (Trazodone Hcl 50 Mg Tablet) 50 mg PO BEDTIME MRX1 PRN PRN Reason: Insomnia Last Admin: 11/24/23 20:13 Dose: 50 mg Triamcinolone Acetonide (Triamcinolone Acet 0.1 % Cream 15 Gm Tube) 1 appl TOPICAL BID PRN; Protocol PRN Reason: skin condition Valproic Acid (Valproic Acid 250 Mg Capsule) 750 mg PO BID [facility] Last Admin: 11/29/23 08:59 Dose: Not Given Allergies Allergies Allergy/AdvReac Type Severity Reaction Status Date / Time No Known Allergies Allergy Verified 11/22/23 16:59 Assessment & Plan Assessment & Plan (1) Schizoaffective disorder, bipolar type: Status: Acute Code(s): F25.0 - Schizoaffective disorder, bipolar type Plan Mrs. Reid is a 78 year-old woman with hx of schizoaffective disorder bipolar type who was brought on section 12a from [facility] to [facility] due to 3 week increase in verbal agitation, paranoid delusions, calling police and refusing care in setting of stopping medications. She has temporary guardian- Adam Rod ([phone]) and Ramy'madhav. She is currently on depakote and olanzapine after coming off haldol due to limited benefit. Increase olanzapine 10mg po BID. continue depakote 750mg po BID. PLAN 11/26- filed for sect 7&8, continue current tx. pt refuses blood work, unable to check depakote levels. 11/27 continue tx. 11/28: refusing to engage with advertising writer unless advertising writer's middle name was provided, which was declined. irritable, hostile. continue current mgmt. Reason for continued inpatient stay Substantial Risk for: inability to function Time Spent With Patient Time: Total time managing care of this patient today ____ minutes.
[2023-11-29 20:00] VITALS: BP 122/58; PULSE 75; RESP 16; TEMP 35.7; O2SAT 95
[2023-11-30] MEDS: Acetaminophen 325 MG TABLET 650 MG PO (02:13)
--- NOTE | 2023-11-30 07:52 | P.PNPSI_ITS ---
Subjective Subjective Date of Service: 11/30/23 Reason For Visit: psychosis Subjective Notes: Section 7 Interim History: Pt slept 8hrs. She continues to refuse depakote. She is taking olanzapine per daksha. She continues to present as labile, refusing certain aspects of care, such as VS, labs. this morning pt reports she did not get the right breakfasts, states that she got too much food. No SI/HI. Diagnostics Vital Signs (24Hr): Vital Signs - 24 hr 11/29/23 08:45 11/29/23 20:00 Temperature 97.6 F 96.2 F L Pulse Rate 102 H 75 Respiratory Rate 20 16 Blood Pressure 107/71 122/58 L Pulse Oximetry 98 95 Oxygen Delivery Method Room Air Room Air BMI result Body Mass Index 24.4 Imaging Radiology Impressions: ITS Impressions Hip X-Ray 11/23/23 13:10 IMPRESSION: 1. Normal pelvis x-ray. No fracture or dislocation is seen. 2. Normal x-ray of the right and left hips. No fracture or dislocation or signs of avascular necrosis are seen. Electronically signed by: William Carlisle MD 11/23/2023 03:21 PM EDT RP Cervical Spine CT 11/23/23 13:27 IMPRESSION: 1. No evidence of acute fracture or dislocation. 2. Moderate degenerative disc disease at C5/C6 and C6/C7. 3. Mild bilateral C5/C6 neural foraminal stenosis. Fleischner guidelines were followed. Electronically signed by: William Carlisle MD 11/23/2023 04:05 PM EDT RP Head CT 11/23/23 13:27 IMPRESSION: 1. Age related cerebral atrophy and mild disproportional ventriculomegaly. 2. No intracranial hemorrhage or skull fracture is seen. 3. No evidence of space occupying lesion could be found. 4. Chronic inferior lateral left cerebellar infarct. 5. 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 6. The current plain CT scan of the brain shows no diagnostic evidence of acute cerebral infarction. Electronically signed by: William Carlisle MD 11/23/2023 03:52 PM EDT RP Medications Medications Current Medications Acetaminophen (Acetaminophen 325 Mg Tablet) 650 mg PO Q6H PRN PRN Reason: Headache/Pain Mild Scale (1-3) Last Admin: 11/30/23 02:13 Dose: 650 mg Al Hydroxide/Mg Hydroxide (Magnesium Hydrox/Alum Hydrox 30 Ml Oral.Susp) 30 ml PO Q6H PRN PRN Reason: Heartburn/Nausea Atorvastatin Calcium (Atorvastatin Calcium 40 Mg Tablet) 40 mg PO DAILY [facility] Last Admin: 11/29/23 08:57 Dose: 40 mg Loratadine (Loratadine 10 Mg Tablet) 10 mg PO DAILY [facility] Last Admin: 11/29/23 08:57 Dose: 10 mg Magnesium Hydroxide (Milk Of Magnesia 30 Ml Oral.Susp) 30 ml PO DAILY PRN PRN Reason: Constipation Nicotine Polacrilex (Nicotine Polacrilex 2 Mg Gum) 2 mg BUCCAL Q2H PRN PRN Reason: Nicotine Cravings Olanzapine (Olanzapine 10 Mg Vial) 10 mg IM BID PRN PRN Reason: Paul order if po refused Last Admin: 11/28/23 22:15 Dose: 10 mg Olanzapine (Olanzapine 10 Mg Tablet) 10 mg PO BID [facility] Last Admin: 11/29/23 20:04 Dose: 10 mg Trazodone HCl (Trazodone Hcl 50 Mg Tablet) 50 mg PO BEDTIME MRX1 PRN PRN Reason: Insomnia Last Admin: 11/24/23 20:13 Dose: 50 mg Triamcinolone Acetonide (Triamcinolone Acet 0.1 % Cream 15 Gm Tube) 1 appl TOPICAL BID PRN; Protocol PRN Reason: skin condition Valproic Acid (Valproic Acid 250 Mg Capsule) 750 mg PO BID [facility] Last Admin: 11/29/23 20:04 Dose: Not Given Allergies Allergies Allergy/AdvReac Type Severity Reaction Status Date / Time No Known Allergies Allergy Verified 11/22/23 16:59 Assessment & Plan Assessment & Plan (1) Schizoaffective disorder, bipolar type: Status: Acute Code(s): F25.0 - Schizoaffective disorder, bipolar type Plan Mrs. Reid is a 78 year-old woman with hx of schizoaffective disorder bipolar type who was brought on section 12a from [facility] to [facility] due to 3 week increase in verbal agitation, paranoid delusions, calling police and refusing care in setting of stopping medications. She has temporary guardian- Adam Rod ([phone]) and Ramy's. She is currently on depakote and olanzapine after coming off haldol due to limited benefit. Increase olanzapine 10mg po BID. continue depakote 750mg po BID. PLAN 11/26- filed for sect 7&8, continue current tx. pt refuses blood work, unable to check depakote levels. 11/27 continue tx. 11/28: refusing to engage with appeals writer unless appeals writer's middle name was provided, which was declined. irritable, hostile. continue current mgmt. 11/29 continue tx. declines depakote for mood stabilization.will increase nighttime olanzapine to 15mg po qhs and continue 10mg po daily Reason for continued inpatient stay Substantial Risk for: inability to function Time Spent With Patient Time: Total time managing care of this patient today ____ minutes.
[2023-11-30 08:00] VITALS: BP 108/55; PULSE 74; RESP 14; TEMP 36.6; O2SAT 96
[2023-11-30] MEDS: Loratadine 10 MG TABLET PO (10:06)
[2023-11-30] MEDS: Atorvastatin Calcium 40 MG TABLET PO (10:06)
[2023-11-30] MEDS: OLANZapine 10 MG TABLET PO ×2 (10:08→20:05)
[2023-11-30 20:00] VITALS: BP 123/64; PULSE 73; RESP 16; TEMP 36.7; O2SAT 97
[2023-12-01 08:44] VITALS: BP 127/69; PULSE 86; RESP 18; TEMP 36.2; O2SAT 98
[2023-12-01] MEDS: Atorvastatin Calcium 40 MG TABLET PO (08:50)
[2023-12-01] MEDS: Loratadine 10 MG TABLET PO (08:51)
[2023-12-01] MEDS: OLANZapine 10 MG TABLET PO ×2 (08:53→20:31)
--- NOTE | 2023-12-01 09:10 | HO.PSYCHPN ---
Subjective Subjective Date of Service: 12/01/23 Reason For Visit: psychosis Interim History: Pt slept 8hrs. She continues to refuse depakote. She is taking olanzapine per daksha. Patient is seen in room with papers on the table. Says she is preparing for court hearing and proceeds to show this financial writer all her preparations and review of the medications. She is adherent to Olanzapine and says she doesn't want to take the Depakote because it is not in the Ramy's order. She is animated while explaining her history and reviewing the paperwork. No SI/HI. Review of Systems Review of Systems declines assessment Mental Status Exam Mental Status Exam Narrative: Appearance: wearing casual clothing, appears older than stated age. IN NAD Behavior: very guarded and hostile Psychomotor: some agitation Speech: clear, hyperverbal not pressured, spontaneous TP: Can be goal oriented TC: wanting to leave the hospital paranoid about staff here Mood: not assessed Affect: Irritable SI: none expressed HI: none expressed VH/AH: none expressed Delusions: paranoid delusions, Insight/judgment: impaired x 2. memory/cog: alert, oriented x 3. pending moca Diagnostics Vital Signs (24Hr): Vital Signs - 24 hr 11/30/23 20:00 12/01/23 08:44 Temperature 98.1 F 97.1 F Pulse Rate 73 86 Respiratory Rate 16 18 Blood Pressure 123/64 127/69 Pulse Oximetry 97 98 Oxygen Delivery Method Room Air BMI result Body Mass Index 24.4 Imaging Radiology Impressions: ITS Impressions Hip X-Ray 11/23/23 13:10 IMPRESSION: 1. Normal pelvis x-ray. No fracture or dislocation is seen. 2. Normal x-ray of the right and left hips. No fracture or dislocation or signs of avascular necrosis are seen. Electronically signed by: William Carlisle MD 11/23/2023 03:21 PM EDT RP Cervical Spine CT 11/23/23 13:27 IMPRESSION: 1. No evidence of acute fracture or dislocation. 2. Moderate degenerative disc disease at C5/C6 and C6/C7. 3. Mild bilateral C5/C6 neural foraminal stenosis. Fleischner guidelines were followed. Electronically signed by: William Carlisle MD 11/23/2023 04:05 PM EDT RP Head CT 11/23/23 13:27 IMPRESSION: 1. Age related cerebral atrophy and mild disproportional ventriculomegaly. 2. No intracranial hemorrhage or skull fracture is seen. 3. No evidence of space occupying lesion could be found. 4. Chronic inferior lateral left cerebellar infarct. 5. 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 6. The current plain CT scan of the brain shows no diagnostic evidence of acute cerebral infarction. Electronically signed by: William Carlisle MD 11/23/2023 03:52 PM EDT RP Medications Medications Current Medications Acetaminophen (Acetaminophen 325 Mg Tablet) 650 mg PO Q6H PRN PRN Reason: Headache/Pain Mild Scale (1-3) Last Admin: 11/30/23 02:13 Dose: 650 mg Al Hydroxide/Mg Hydroxide (Magnesium Hydrox/Alum Hydrox 30 Ml Oral.Susp) 30 ml PO Q6H PRN PRN Reason: Heartburn/Nausea Atorvastatin Calcium (Atorvastatin Calcium 40 Mg Tablet) 40 mg PO DAILY [facility] Last Admin: 12/01/23 08:50 Dose: 40 mg Loratadine (Loratadine 10 Mg Tablet) 10 mg PO DAILY [facility] Last Admin: 12/01/23 08:51 Dose: 10 mg Magnesium Hydroxide (Milk Of Magnesia 30 Ml Oral.Susp) 30 ml PO DAILY PRN PRN Reason: Constipation Nicotine Polacrilex (Nicotine Polacrilex 2 Mg Gum) 2 mg BUCCAL Q2H PRN PRN Reason: Nicotine Cravings Olanzapine (Olanzapine 10 Mg Vial) 10 mg IM BID PRN PRN Reason: Paul order if po refused Last Admin: 11/28/23 22:15 Dose: 10 mg Olanzapine (Olanzapine 10 Mg Tablet) 10 mg PO DAILY [facility] Last Admin: 12/01/23 08:53 Dose: 10 mg Olanzapine (Olanzapine 10 Mg Tablet) 10 mg PO BEDTIME [facility] Last Admin: 11/30/23 20:05 Dose: 10 mg Trazodone HCl (Trazodone Hcl 50 Mg Tablet) 50 mg PO BEDTIME MRX1 PRN PRN Reason: Insomnia Last Admin: 11/24/23 20:13 Dose: 50 mg Triamcinolone Acetonide (Triamcinolone Acet 0.1 % Cream 15 Gm Tube) 1 appl TOPICAL BID PRN; Protocol PRN Reason: skin condition Valproic Acid (Valproic Acid 250 Mg Capsule) 750 mg PO BID [facility] Last Admin: 12/01/23 08:58 Dose: Not Given Allergies Allergies Allergy/AdvReac Type Severity Reaction Status Date / Time No Known Allergies Allergy Verified 11/22/23 16:59 Assessment & Plan Assessment & Plan (1) Schizoaffective disorder, bipolar type: Status: Acute Code(s): F25.0 - Schizoaffective disorder, bipolar type Plan Mrs. Reid is a 78 year-old woman with hx of schizoaffective disorder bipolar type who was brought on section 12a from [facility] to [facility] due to 3 week increase in verbal agitation, paranoid delusions, calling police and refusing care in setting of stopping medications. She has temporary guardian- Adam Rod ([phone]) and Keira. She is currently on depakote and olanzapine after coming off haldol due to limited benefit. Increase olanzapine 10mg po BID. continue depakote 750mg po BID. PLAN 11/26- filed for sect 7&8, continue current tx. pt refuses blood work, unable to check depakote levels. 11/27 continue tx. 11/28: refusing to engage with financial writer unless financial writer's middle name was provided, which was declined. irritable, hostile. continue current mgmt. 11/29 continue tx. declines depakote for mood stabilization.will increase nighttime olanzapine to 15mg po qhs and continue 10mg po daily 11/30: continue current management and treatment plan. Reason for continued inpatient stay Substantial Risk for: inability to function, rapid decompensation and med/psych decompensation Time Spent With Patient Time: Total time managing care of this patient today ____ minutes.
[2023-12-01 20:00] VITALS: BP 142/87; PULSE 85; RESP 16; TEMP 36.9; O2SAT 100
[2023-12-02 09:00] VITALS: BP 119/90; PULSE 86; RESP 18; TEMP 36.1; O2SAT 98
[2023-12-02] MEDS: OLANZapine 10 MG TABLET PO ×2 (09:01→20:29)
[2023-12-02] MEDS: Loratadine 10 MG TABLET PO (09:02)
[2023-12-02] MEDS: Atorvastatin Calcium 40 MG TABLET PO (09:02)
--- NOTE | 2023-12-02 11:40 | P.PNPSI_ITS ---
Subjective Subjective Date of Service: 12/02/23 Reason For Visit: psychosis Interim History: Patient is cooperative. Continues to refuse Depakote but compliant with Zyprexa. Pleasant and cooperative. She is adherent to Olanzapine and says she doesn't want to take the Depakote because it is not in the Ramy's order. No SI/HI. Review of Systems Review of Systems declines assessment Mental Status Exam Mental Status Exam Narrative: Appearance: wearing casual clothing, appears older than stated age. IN NAD Behavior: very guarded and hostile Psychomotor: some agitation Speech: clear, hyperverbal not pressured, spontaneous TP: Can be goal oriented TC: wanting to leave the hospital paranoid about staff here Mood: not assessed Affect: Irritable SI: none expressed HI: none expressed VH/AH: none expressed Delusions: paranoid delusions, Insight/judgment: impaired x 2. memory/cog: alert, oriented x 3. pending moca Diagnostics Vital Signs (24Hr): Vital Signs - 24 hr 12/01/23 20:00 12/02/23 09:00 Temperature 98.5 F 96.9 F Pulse Rate 85 86 Respiratory Rate 16 18 Blood Pressure 142/87 H 119/90 H Pulse Oximetry 100 98 Oxygen Delivery Method Room Air Room Air BMI result Body Mass Index 24.4 Imaging Radiology Impressions: ITS Impressions Hip X-Ray 11/23/23 13:10 IMPRESSION: 1. Normal pelvis x-ray. No fracture or dislocation is seen. 2. Normal x-ray of the right and left hips. No fracture or dislocation or signs of avascular necrosis are seen. Electronically signed by: William Carlisle MD 11/23/2023 03:21 PM EDT RP Cervical Spine CT 11/23/23 13:27 IMPRESSION: 1. No evidence of acute fracture or dislocation. 2. Moderate degenerative disc disease at C5/C6 and C6/C7. 3. Mild bilateral C5/C6 neural foraminal stenosis. Fleischner guidelines were followed. Electronically signed by: William Carlisle MD 11/23/2023 04:05 PM EDT RP Head CT 11/23/23 13:27 IMPRESSION: 1. Age related cerebral atrophy and mild disproportional ventriculomegaly. 2. No intracranial hemorrhage or skull fracture is seen. 3. No evidence of space occupying lesion could be found. 4. Chronic inferior lateral left cerebellar infarct. 5. 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 6. The current plain CT scan of the brain shows no diagnostic evidence of acute cerebral infarction. Electronically signed by: Wliliam Carlisle MD 11/23/2023 03:52 PM EDT RP Medications Medications Current Medications Acetaminophen (Acetaminophen 325 Mg Tablet) 650 mg PO Q6H PRN PRN Reason: Headache/Pain Mild Scale (1-3) Last Admin: 11/30/23 02:13 Dose: 650 mg Al Hydroxide/Mg Hydroxide (Magnesium Hydrox/Alum Hydrox 30 Ml Oral.Susp) 30 ml PO Q6H PRN PRN Reason: Heartburn/Nausea Atorvastatin Calcium (Atorvastatin Calcium 40 Mg Tablet) 40 mg PO DAILY [facility] Last Admin: 12/02/23 09:02 Dose: 40 mg Loratadine (Loratadine 10 Mg Tablet) 10 mg PO DAILY [facility] Last Admin: 12/02/23 09:02 Dose: 10 mg Magnesium Hydroxide (Milk Of Magnesia 30 Ml Oral.Susp) 30 ml PO DAILY PRN PRN Reason: Constipation Nicotine Polacrilex (Nicotine Polacrilex 2 Mg Gum) 2 mg BUCCAL Q2H PRN PRN Reason: Nicotine Cravings Olanzapine (Olanzapine 10 Mg Vial) 10 mg IM BID PRN PRN Reason: Paul order if po refused Last Admin: 11/28/23 22:15 Dose: 10 mg Olanzapine (Olanzapine 10 Mg Tablet) 10 mg PO DAILY [facility] Last Admin: 12/02/23 09:01 Dose: 10 mg Olanzapine (Olanzapine 10 Mg Tablet) 10 mg PO BEDTIME [facility] Last Admin: 12/01/23 20:31 Dose: 10 mg Trazodone HCl (Trazodone Hcl 50 Mg Tablet) 50 mg PO BEDTIME MRX1 PRN PRN Reason: Insomnia Last Admin: 11/24/23 20:13 Dose: 50 mg Triamcinolone Acetonide (Triamcinolone Acet 0.1 % Cream 15 Gm Tube) 1 appl TOPICAL BID PRN; Protocol PRN Reason: skin condition Valproic Acid (Valproic Acid 250 Mg Capsule) 750 mg PO BID [facility] Last Admin: 12/02/23 10:14 Dose: Not Given Allergies Allergies Allergy/AdvReac Type Severity Reaction Status Date / Time No Known Allergies Allergy Verified 11/22/23 16:59 Assessment & Plan Assessment & Plan (1) Schizoaffective disorder, bipolar type: Status: Acute Code(s): F25.0 - Schizoaffective disorder, bipolar type Plan Mrs. Reid is a 78 year-old woman with hx of schizoaffective disorder bipolar type who was brought on section 12a from [facility] to [facility] due to 3 week increase in verbal agitation, paranoid delusions, calling police and refusing care in setting of stopping medications. She has temporary guardian- Adam Rod ([phone]) and Keira. She is currently on depakote and olanzapine after coming off haldol due to limited benefit. Increase olanzapine 10mg po BID. continue depakote 750mg po BID. PLAN 11/26- filed for sect 7&8, continue current tx. pt refuses blood work, unable to check depakote levels. 11/27 continue tx. 11/28: refusing to engage with magnetic tape typewriter operator unless magnetic tape typewriter operator's middle name was provided, which was declined. irritable, hostile. continue current mgmt. 11/29 continue tx. declines depakote for mood stabilization.will increase nighttime olanzapine to 15mg po qhs and continue 10mg po daily 11/30: continue current management and treatment plan. 12/01: Continue current management and treatment plan. Reason for continued inpatient stay Substantial Risk for: inability to function and rapid decompensation Time Spent With Patient Time: Total time managing care of this patient today ____ minutes.
[2023-12-02 20:00] VITALS: BP 122/89; PULSE 84; RESP 16; TEMP 37.2; O2SAT 95
[2023-12-03 08:23] VITALS: BP 131/76; PULSE 95; RESP 18; TEMP 36.8; O2SAT 95
[2023-12-03] MEDS: OLANZapine 10 MG TABLET PO ×2 (08:46→20:22)
[2023-12-03] MEDS: Atorvastatin Calcium 40 MG TABLET PO (08:46)
[2023-12-03] MEDS: Loratadine 10 MG TABLET PO (08:47)
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
--- NOTE | 2023-12-03 16:18 | P.PNPSI_ITS ---
Subjective Subjective Date of Service: 12/03/23 Reason For Visit: psychosis Interim History: Patient is cooperative. Continues to refuse Depakote but compliant with Zyprexa. Pleasant and cooperative. Asking about process for court and whether it is in person or virtually. No SI/HI. Review of Systems Review of Systems declines assessment Mental Status Exam Mental Status Exam Narrative: Appearance: wearing casual clothing, appears older than stated age. IN NAD Behavior: very guarded and hostile Psychomotor: some agitation Speech: clear, hyperverbal not pressured, spontaneous TP: Can be goal oriented TC: wanting to leave the hospital paranoid about staff here Mood: not assessed Affect: Irritable SI: none expressed HI: none expressed VH/AH: none expressed Delusions: paranoid delusions, Insight/judgment: impaired x 2. memory/cog: alert, oriented x 3. pending moca Diagnostics Vital Signs (24Hr): Vital Signs - 24 hr 12/02/23 20:00 12/03/23 08:23 Temperature 99.0 F 98.3 F Pulse Rate 84 95 Respiratory Rate 16 18 Blood Pressure 122/89 131/76 Pulse Oximetry 95 95 Oxygen Delivery Method Room Air Room Air BMI result Body Mass Index 24.4 Imaging Radiology Impressions: ITS Impressions Hip X-Ray 11/23/23 13:10 IMPRESSION: 1. Normal pelvis x-ray. No fracture or dislocation is seen. 2. Normal x-ray of the right and left hips. No fracture or dislocation or signs of avascular necrosis are seen. Electronically signed by: William Carlisle MD 11/23/2023 03:21 PM EDT RP Cervical Spine CT 11/23/23 13:27 IMPRESSION: 1. No evidence of acute fracture or dislocation. 2. Moderate degenerative disc disease at C5/C6 and C6/C7. 3. Mild bilateral C5/C6 neural foraminal stenosis. Fleischner guidelines were followed. Electronically signed by: William Carlisle MD 11/23/2023 04:05 PM EDT RP Head CT 11/23/23 13:27 IMPRESSION: 1. Age related cerebral atrophy and mild disproportional ventriculomegaly. 2. No intracranial hemorrhage or skull fracture is seen. 3. No evidence of space occupying lesion could be found. 4. Chronic inferior lateral left cerebellar infarct. 5. 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 6. The current plain CT scan of the brain shows no diagnostic evidence of acute cerebral infarction. Electronically signed by: William Carlisle MD 11/23/2023 03:52 PM EDT Medications Medications Current Medications Acetaminophen (Acetaminophen 325 Mg Tablet) 650 mg PO Q6H PRN PRN Reason: Headache/Pain Mild Scale (1-3) Last Admin: 11/30/23 02:13 Dose: 650 mg Al Hydroxide/Mg Hydroxide (Magnesium Hydrox/Alum Hydrox 30 Ml Oral.Susp) 30 ml PO Q6H PRN PRN Reason: Heartburn/Nausea Atorvastatin Calcium (Atorvastatin Calcium 40 Mg Tablet) 40 mg PO DAILY [facility] Last Admin: 12/03/23 08:46 Dose: 40 mg Loratadine (Loratadine 10 Mg Tablet) 10 mg PO DAILY [facility] Last Admin: 12/03/23 08:47 Dose: 10 mg Magnesium Hydroxide (Milk Of Magnesia 30 Ml Oral.Susp) 30 ml PO DAILY PRN PRN Reason: Constipation Nicotine Polacrilex (Nicotine Polacrilex 2 Mg Gum) 2 mg BUCCAL Q2H PRN PRN Reason: Nicotine Cravings Olanzapine (Olanzapine 10 Mg Vial) 10 mg IM BID PRN PRN Reason: Paul order if po refused Last Admin: 11/28/23 22:15 Dose: 10 mg Olanzapine (Olanzapine 10 Mg Tablet) 10 mg PO DAILY [facility] Last Admin: 12/03/23 08:46 Dose: 10 mg Olanzapine (Olanzapine 10 Mg Tablet) 10 mg PO BEDTIME [facility] Last Admin: 12/02/23 20:29 Dose: 10 mg Trazodone HCl (Trazodone Hcl 50 Mg Tablet) 50 mg PO BEDTIME MRX1 PRN PRN Reason: Insomnia Last Admin: 11/24/23 20:13 Dose: 50 mg Triamcinolone Acetonide (Triamcinolone Acet 0.1 % Cream 15 Gm Tube) 1 appl TOPICAL BID PRN; Protocol PRN Reason: skin condition Valproic Acid (Valproic Acid 250 Mg Capsule) 750 mg PO BID [facility] Last Admin: 12/03/23 08:47 Dose: Not Given Allergies Allergies Allergy/AdvReac Type Severity Reaction Status Date / Time No Known Allergies Allergy Verified 11/22/23 16:59 Assessment & Plan Assessment & Plan (1) Schizoaffective disorder, bipolar type: Status: Acute Code(s): F25.0 - Schizoaffective disorder, bipolar type Plan Mrs. Reid is a 78 year-old woman with hx of schizoaffective disorder bipolar type who was brought on section 12a from [facility] to [facility] due to 3 week increase in verbal agitation, paranoid delusions, calling police and refusing care in setting of stopping medications. She has temporary guardian- Adam Rod ([phone]) and Keira. She is currently on depakote and olanzapine after coming off haldol due to limited benefit. Increase olanzapine 10mg po BID. continue depakote 750mg po BID. PLAN 11/26- filed for sect 7&8, continue current tx. pt refuses blood work, unable to check depakote levels. 11/27 continue tx. 11/28: refusing to engage with underwriter solicitation director unless underwriter solicitation director's middle name was provided, which was declined. irritable, hostile. continue current mgmt. 11/29 continue tx. declines depakote for mood stabilization.will increase nighttime olanzapine to 15mg po qhs and continue 10mg po daily 11/30: continue current management and treatment plan. 12/01: Continue current management and treatment plan. 12/02: Continue current management and treatment plan. Reason for continued inpatient stay Substantial Risk for: inability to function and rapid decompensation Time Spent With Patient Time: Total time managing care of this patient today ____ minutes.
[2023-12-03 20:00] VITALS: BP 119/71; PULSE 75; RESP 18; TEMP 36.4; O2SAT 98
[2023-12-04 08:49] VITALS: BP 126/85; PULSE 92; RESP 18; TEMP 36.5; O2SAT 95
--- NOTE | 2023-12-04 09:18 | HO.PSYCHPN ---
Subjective Subjective Date of Service: 12/04/23 Reason For Visit: psychosis Subjective Notes: Section 7 Interim History: Pt slept through the night. Not taking depakote. She is taking oral olanzapine. She appears calmer, less hyperverbal although no insight into illness and need for treatment. Court hearing held, petition to take underadvisement until SNF ready to receive pt in next 2-3 days. Review of Systems Review of Systems declines assessment Mental Status Exam Mental Status Exam Narrative: Appearance: wearing casual clothing, appears older than stated age. IN NAD Behavior: very guarded and hostile Psychomotor: some agitation Speech: clear, hyperverbal not pressured, spontaneous TP: Can be goal oriented TC: wanting to leave the hospital paranoid about staff here Mood: not assessed Affect: Irritable SI: none expressed HI: none expressed VH/AH: none expressed Delusions: paranoid delusions, Insight/judgment: impaired x 2. memory/cog: alert, oriented x 3. pending moca Diagnostics Vital Signs (24Hr): Vital Signs - 24 hr 12/03/23 20:00 12/04/23 08:49 Temperature 97.6 F 97.7 F Pulse Rate 75 92 Respiratory Rate 18 18 Blood Pressure 119/71 126/85 Pulse Oximetry 98 95 Oxygen Delivery Method Room Air Room Air BMI result Body Mass Index 24.4 Imaging Radiology Impressions: ITS Impressions Hip X-Ray 11/23/23 13:10 IMPRESSION: 1. Normal pelvis x-ray. No fracture or dislocation is seen. 2. Normal x-ray of the right and left hips. No fracture or dislocation or signs of avascular necrosis are seen. Electronically signed by: William Carlisle MD 11/23/2023 03:21 PM EDT RP Cervical Spine CT 11/23/23 13:27 IMPRESSION: 1. No evidence of acute fracture or dislocation. 2. Moderate degenerative disc disease at C5/C6 and C6/C7. 3. Mild bilateral C5/C6 neural foraminal stenosis. Fleischner guidelines were followed. Electronically signed by: William Carlisle MD 11/23/2023 04:05 PM EDT RP Head CT 11/23/23 13:27 IMPRESSION: 1. Age related cerebral atrophy and mild disproportional ventriculomegaly. 2. No intracranial hemorrhage or skull fracture is seen. 3. No evidence of space occupying lesion could be found. 4. Chronic inferior lateral left cerebellar infarct. 5. 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 6. The current plain CT scan of the brain shows no diagnostic evidence of acute cerebral infarction. Electronically signed by: William Carlisle MD 11/23/2023 03:52 PM EDT Medications Medications Current Medications Acetaminophen (Acetaminophen 325 Mg Tablet) 650 mg PO Q6H PRN PRN Reason: Headache/Pain Mild Scale (1-3) Last Admin: 11/30/23 02:13 Dose: 650 mg Al Hydroxide/Mg Hydroxide (Magnesium Hydrox/Alum Hydrox 30 Ml Oral.Susp) 30 ml PO Q6H PRN PRN Reason: Heartburn/Nausea Atorvastatin Calcium (Atorvastatin Calcium 40 Mg Tablet) 40 mg PO DAILY [facility] Last Admin: 12/03/23 08:46 Dose: 40 mg Loratadine (Loratadine 10 Mg Tablet) 10 mg PO DAILY [facility] Last Admin: 12/03/23 08:47 Dose: 10 mg Magnesium Hydroxide (Milk Of Magnesia 30 Ml Oral.Susp) 30 ml PO DAILY PRN PRN Reason: Constipation Nicotine Polacrilex (Nicotine Polacrilex 2 Mg Gum) 2 mg BUCCAL Q2H PRN PRN Reason: Nicotine Cravings Olanzapine (Olanzapine 10 Mg Vial) 10 mg IM BID PRN PRN Reason: Paul order if po refused Last Admin: 11/28/23 22:15 Dose: 10 mg Olanzapine (Olanzapine 10 Mg Tablet) 10 mg PO DAILY [facility] Last Admin: 12/03/23 08:46 Dose: 10 mg Olanzapine (Olanzapine 10 Mg Tablet) 10 mg PO BEDTIME [facility] Last Admin: 12/03/23 20:22 Dose: 10 mg Trazodone HCl (Trazodone Hcl 50 Mg Tablet) 50 mg PO BEDTIME MRX1 PRN PRN Reason: Insomnia Last Admin: 11/24/23 20:13 Dose: 50 mg Triamcinolone Acetonide (Triamcinolone Acet 0.1 % Cream 15 Gm Tube) 1 appl TOPICAL BID PRN; Protocol PRN Reason: skin condition Valproic Acid (Valproic Acid 250 Mg Capsule) 750 mg PO BID [facility] Last Admin: 12/03/23 20:23 Dose: Not Given Allergies Allergies Allergy/AdvReac Type Severity Reaction Status Date / Time No Known Allergies Allergy Verified 11/22/23 16:59 Assessment & Plan Assessment & Plan (1) Schizoaffective disorder, bipolar type: Status: Acute Code(s): F25.0 - Schizoaffective disorder, bipolar type Plan Mrs. Reid is a 78 year-old woman with hx of schizoaffective disorder bipolar type who was brought on section 12a from [facility] to [facility] due to 3 week increase in verbal agitation, paranoid delusions, calling police and refusing care in setting of stopping medications. She has temporary guardian- Adam Rod ([phone]) and Ramy'madhav. She is currently on depakote and olanzapine after coming off haldol due to limited benefit. Increase olanzapine 10mg po BID. continue depakote 750mg po BID. PLAN 11/26- filed for sect 7&8, continue current tx. pt refuses blood work, unable to check depakote levels. 11/27 continue tx. 11/28: refusing to engage with field underwriter unless field underwriter's middle name was provided, which was declined. irritable, hostile. continue current mgmt. 11/29 continue tx. declines depakote for mood stabilization.will increase nighttime olanzapine to 15mg po qhs and continue 10mg po daily 11/30: continue current management and treatment plan. 12/01: Continue current management and treatment plan. 12/02: Continue current management and treatment plan. 12/03 continue tx. Reason for continued inpatient stay Substantial Risk for: inability to function Time Spent With Patient Time: Total time managing care of this patient today ____ minutes.
[2023-12-04] MEDS: OLANZapine 10 MG TABLET PO ×2 (10:40→20:19)
[2023-12-04] MEDS: Loratadine 10 MG TABLET PO (10:40)
[2023-12-04] MEDS: Atorvastatin Calcium 40 MG TABLET PO (10:40)
[2023-12-04 20:00] VITALS: BP 115/55; PULSE 76; RESP 18; TEMP 36.7; O2SAT 95
[2023-12-05 08:02] VITALS: BP 120/61; PULSE 81; RESP 18; TEMP 35.9; O2SAT 96
[2023-12-05] MEDS: OLANZapine 10 MG TABLET PO ×2 (08:24→20:24)
[2023-12-05] MEDS: Loratadine 10 MG TABLET PO (08:24)
[2023-12-05] MEDS: Atorvastatin Calcium 40 MG TABLET PO (08:24)
--- NOTE | 2023-12-05 15:12 | P.PNPSI_ITS ---
Subjective Subjective Date of Service: 12/05/23 Reason For Visit: psychosis Subjective Notes: Section 7 Interim History: Pt slept through the night. Pt reporting that she is supposed to leave today. She met with staff from [facility], somewhat suspicious asking for their credentials. No SI/HI. less hyperverbal but insisting she has to go now. Review of Systems Review of Systems declines assessment Mental Status Exam Mental Status Exam Narrative: Appearance: wearing casual clothing, appears older than stated age. IN NAD Behavior: very guarded and hostile Psychomotor: some agitation Speech: clear, hyperverbal not pressured, spontaneous TP: Can be goal oriented TC: wanting to leave the hospital paranoid about staff here Mood: not assessed Affect: Irritable SI: none expressed HI: none expressed VH/AH: none expressed Delusions: paranoid delusions, Insight/judgment: impaired x 2. memory/cog: alert, oriented x 3. pending moca Diagnostics Vital Signs (24Hr): Vital Signs - 24 hr 12/04/23 20:00 12/05/23 08:02 Temperature 98.1 F 96.6 F L Pulse Rate 76 81 Respiratory Rate 18 18 Blood Pressure 115/55 L 120/61 Pulse Oximetry 95 96 Oxygen Delivery Method Room Air Room Air BMI result Body Mass Index 24.4 Imaging Radiology Impressions: ITS Impressions Hip X-Ray 11/23/23 13:10 IMPRESSION: 1. Normal pelvis x-ray. No fracture or dislocation is seen. 2. Normal x-ray of the right and left hips. No fracture or dislocation or signs of avascular necrosis are seen. Electronically signed by: William Carlisle MD 11/23/2023 03:21 PM EDT RP Cervical Spine CT 11/23/23 13:27 IMPRESSION: 1. No evidence of acute fracture or dislocation. 2. Moderate degenerative disc disease at C5/C6 and C6/C7. 3. Mild bilateral C5/C6 neural foraminal stenosis. Fleischner guidelines were followed. Electronically signed by: William Carlisle MD 11/23/2023 04:05 PM EDT RP Head CT 11/23/23 13:27 IMPRESSION: 1. Age related cerebral atrophy and mild disproportional ventriculomegaly. 2. No intracranial hemorrhage or skull fracture is seen. 3. No evidence of space occupying lesion could be found. 4. Chronic inferior lateral left cerebellar infarct. 5. 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 6. The current plain CT scan of the brain shows no diagnostic evidence of acute cerebral infarction. Electronically signed by: William Carlisle MD 11/23/2023 03:52 PM EDT Medications Medications Current Medications Acetaminophen (Acetaminophen 325 Mg Tablet) 650 mg PO Q6H PRN PRN Reason: Headache/Pain Mild Scale (1-3) Last Admin: 11/30/23 02:13 Dose: 650 mg Al Hydroxide/Mg Hydroxide (Magnesium Hydrox/Alum Hydrox 30 Ml Oral.Susp) 30 ml PO Q6H PRN PRN Reason: Heartburn/Nausea Atorvastatin Calcium (Atorvastatin Calcium 40 Mg Tablet) 40 mg PO DAILY [facility] Last Admin: 12/05/23 08:24 Dose: 40 mg Loratadine (Loratadine 10 Mg Tablet) 10 mg PO DAILY [facility] Last Admin: 12/05/23 08:24 Dose: 10 mg Magnesium Hydroxide (Milk Of Magnesia 30 Ml Oral.Susp) 30 ml PO DAILY PRN PRN Reason: Constipation Nicotine Polacrilex (Nicotine Polacrilex 2 Mg Gum) 2 mg BUCCAL Q2H PRN PRN Reason: Nicotine Cravings Olanzapine (Olanzapine 10 Mg Vial) 10 mg IM BID PRN PRN Reason: Paul order if po refused Last Admin: 11/28/23 22:15 Dose: 10 mg Olanzapine (Olanzapine 10 Mg Tablet) 10 mg PO DAILY [facility] Last Admin: 12/05/23 08:24 Dose: 10 mg Olanzapine (Olanzapine 10 Mg Tablet) 10 mg PO BEDTIME [facility] Last Admin: 12/04/23 20:19 Dose: 10 mg Trazodone HCl (Trazodone Hcl 50 Mg Tablet) 50 mg PO BEDTIME MRX1 PRN PRN Reason: Insomnia Last Admin: 11/24/23 20:13 Dose: 50 mg Triamcinolone Acetonide (Triamcinolone Acet 0.1 % Cream 15 Gm Tube) 1 appl TOPICAL BID PRN; Protocol PRN Reason: skin condition Valproic Acid (Valproic Acid 250 Mg Capsule) 750 mg PO BID [facility] Last Admin: 12/05/23 08:36 Dose: Not Given Allergies Allergies Allergy/AdvReac Type Severity Reaction Status Date / Time No Known Allergies Allergy Verified 11/22/23 16:59 Assessment & Plan Assessment & Plan (1) Schizoaffective disorder, bipolar type: Status: Acute Code(s): F25.0 - Schizoaffective disorder, bipolar type Plan Mrs. Reid is a 78 year-old woman with hx of schizoaffective disorder bipolar type who was brought on section 12a from [facility] to [facility] due to 3 week increase in verbal agitation, paranoid delusions, calling police and refusing care in setting of stopping medications. She has temporary guardian- Adam Rod ([phone]) and Ramy'madhav. She is currently on depakote and olanzapine after coming off haldol due to limited benefit. Increase olanzapine 10mg po BID. continue depakote 750mg po BID. PLAN 11/26- filed for sect 7&8, continue current tx. pt refuses blood work, unable to check depakote levels. 11/27 continue tx. 11/28: refusing to engage with sports writer unless sports writer's middle name was provided, which was declined. irritable, hostile. continue current mgmt. 11/29 continue tx. declines depakote for mood stabilization.will increase nighttime olanzapine to 15mg po qhs and continue 10mg po daily 11/30: continue current management and treatment plan. 12/01: Continue current management and treatment plan. 12/02: Continue current management and treatment plan. 12/03 continue tx. 12/04 continue tx. plan to dc tomorrow. Reason for continued inpatient stay Substantial Risk for: inability to function Time Spent With Patient Time: Total time managing care of this patient today ____ minutes.
[2023-12-05 20:00] VITALS: BP 134/79; PULSE 83; RESP 17; TEMP 36.1; O2SAT 97
[2023-12-06 08:00] VITALS: BP 124/71; PULSE 88; RESP 18; O2SAT 98
--- NOTE | 2023-12-06 08:15 | P.DS_ITS ---
DS: Providers Provider Date of Service: 12/06/23 Date of admission: 11/22/23 16:28 Date of discharge: 12/06/23 Primary care physician: Adrian Mata MD Consults: 11/22/23 16:59 Consult to Hospitalist Routine Comment: Consulting Provider: Hospitalist Reason For Exam: medical H&P DS: Diagnosis Discharge Diagnosis (1) Schizoaffective disorder, bipolar type: Status: Acute DS: Medications Discharge Medications Home Medications: Home Medications ?Medication ?Instructions ?Recorded ?Confirmed atorvastatin 40 mg tablet (Lipitor) 40 mg PO DAILY 11/22/23 11/22/23 Previous Rx's ?Medication ?Instructions ?Recorded loratadine 10 mg tablet 10 mg PO DAILY #0 tabs 12/06/23 olanzapine 10 mg tablet 10 mg PO BEDTIME #0 tabs 12/06/23 olanzapine 10 mg tablet 10 mg PO DAILY #0 tabs 12/06/23 trazodone 50 mg tablet 50 mg PO BEDTIME PRN Insomnia #0 12/06/23 tabs valproic acid 250 mg capsule 750 mg (3 x 250 mg) PO BID #0 caps 12/06/23 Mental Status Exam Mental Status Exam Narrative: Appearance: wearing casual clothing, appears older than stated age, good hygiene. IN NAD Behavior: cooperative, some intensity about leaving soon and not needing medications Psychomotor: no agitation or retardation noted. bilat resting tremor, slightly more pronounced on left side. Speech: clear, less hyperverbal, spontaneous TP: Can be goal oriented TC: looking forward to be discharged Mood: not assessed Affect: less labile SI: none expressed HI: none expressed VH/AH: none expressed Delusions:residual paranoid delusions, Insight/judgment: impaired x 2. memory/cog: alert, oriented x 3. underlying cognitive and memory impairments affecting visuospatial, executive function, Data Imaging Diagnostic Imaging Impressions Hip X-Ray 11/23/23 13:10 IMPRESSION: 1. Normal pelvis x-ray. No fracture or dislocation is seen. 2. Normal x-ray of the right and left hips. No fracture or dislocation or signs of avascular necrosis are seen. Electronically signed by: William Carlisle MD 11/23/2023 03:21 PM EDT Cervical Spine CT 11/23/23 13:27 IMPRESSION: 1. No evidence of acute fracture or dislocation. 2. Moderate degenerative disc disease at C5/C6 and C6/C7. 3. Mild bilateral C5/C6 neural foraminal stenosis. Fleischner guidelines were followed. Electronically signed by: William Carlisle MD 11/23/2023 04:05 PM EDT RP Head CT 11/23/23 13:27 IMPRESSION: 1. Age related cerebral atrophy and mild disproportional ventriculomegaly. 2. No intracranial hemorrhage or skull fracture is seen. 3. No evidence of space occupying lesion could be found. 4. Chronic inferior lateral left cerebellar infarct. 5. 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 6. The current plain CT scan of the brain shows no diagnostic evidence of acute cerebral infarction. Electronically signed by: William Carlisle MD 11/23/2023 03:52 PM EDT RP DS: Summary Hospital Course Hospital Course: Ms. Reid is a 78 year-old woman with hx of schizoaffective disorder who was brought from [facility] where she has resided for some years to [facility] on 10/22/2023 on a section 12A due to increase verbal agitation, paranoid delusions, calling the police and refusing care for the past 3 weeks. It appears she may have stopped taking her medications including haldol 3mg po qhs, seroquel 50mg qhs and depakote 250mg po qhs. [place] [facility] was [place] by psychiatry; initially haldol was increased as well as depakote but she continues to present as agitated, swinging at staff and requiring IM medication for agitation and combative behaviors. She was then cross rianna from haldol to olanzapine and appear to present slightly calmer. She is currently on depakote 750mg po BID and olanzapine 5mg po daily and 10mg po qhs. Pt recently was appointed a temporary guardian, who is her brother, Adam Brumfield ([phone]). She also has a [facility] order that includes haldol, risperidone, seroquel and olanzapine. On the unit, pt initially hyperverbal, with flight of ideas talking about food, how she feels good and does not need to be here. She declined signing voluntary admission. She also presented as very irritable especially when antipsychotic medication was administered per Ramy's order. She declined to speak with this singer songwriter. She was in her room, intermittently screaming rape, rape, rape! She denied SI/HI. Past Psychiatric History: Inpt: ECT 2016 for catatonia; Last psych admission [facility] 2018 HOSPITAL COURSE On the unit, pt was admitted on a sect 12b. Pt presented as labile, paranoid, reporting rape and hyperverbal. She was intermittently irritable and yelling at staff. She refused oral olanzapine per Ramy's order and received initially IM olanzapine. She denied SI/HI. She refused depakote, although it is her guardian who consents for her treatment. Her affect gradually presented as less labile, less irritable and explosive. She was less accusatory towards staff and others and she stopped reporting rape. She did continue to present with residual paranoid ideas, asking people to identify them self as she was mildly mistrustful. She was not as hyperverbal, easier to redirect in conversation and maintain a more coherent conversation. There were no need for restraints while she was on the unit and she was not physically aggressive towards staff or peer. She was sleeping well. No SI/HI. Status at Discharge Cognitive/behavioral status at discharge: Pt less labile, less explosive. Less accusatory. Some residual paranoid ideas persist. No SI/HI. Limited insight into her illness and need for treatment. Insight may not be regained which will required ongoing support from guardian as overall she is not able to show capacity to make medical decisions. Functional status at discharge: independent ambulation Overall status at discharge: patient is progressing back to baseline Time Spent with Patient Time attestation: Total time managing care of this patient today ___35_ minutes. Time spent: Greater than 30 minutes Discharge Plan Discharge Anticipated Discharge Date/Time: 12/06/23 08:11 Patient Disposition: Home, Self-Care Discharge Diagnosis: schizoaffective bipolar type Referrals: [facility] [Other] - 12/07/23 (You will see your [facility] PCP on 12/07/23. You are able to attend day program 5 days a week. ) [facility] [Other] - 12/06/23 9:00 am (You will transfer back to [facility] on 12/06/23 at 9am. ) Adrian Mata MD [Primary Care Provider] - 12/07/23 9:00 am ([facility] will provide transportation on 12/07/23 at 9am for appointment with Dr Adrian Mata on 12/07/23 and to meet with your team. ) Discharge Medications: New trazodone 50 mg Tablet 50 mg PO BEDTIME PRN (Reason: Insomnia) Qty: 0 0RF olanzapine 10 mg Tablet 10 mg PO BEDTIME Qty: 0 0RF olanzapine 10 mg Tablet 10 mg PO DAILY Qty: 0 0RF valproic acid 250 mg Capsule 750 mg PO BID Qty: 0 0RF loratadine 10 mg Tablet 10 mg PO DAILY Qty: 0 0RF Continued atorvastatin [Lipitor] 40 mg Tablet 40 mg PO DAILY Discontinued cetirizine 5 mg Tablet 5 mg PO DAILY permethrin [Elimite] 5 % Cream 1 appl TOPICAL diphenhydramine HCl [Benadryl] 25 mg Capsule 25 mg PO Q6H PRN (Reason: Itching) triamcinolone acetonide [Kenalog] 0.1 % Ointment 1 appl TOPICAL BID olanzapine 10 mg Tablet,Disintegrating 10 mg PO BEDTIME olanzapine 5 mg Tablet,Disintegrating 5 mg PO DAILY valproic acid (as sodium salt) 250 mg/5 mL (5 mL) Solution 750 mg PO Q12H Discharge Orders: Discharge Order (Routine); Ordered 12/06/23 Ordered By: Rona Thomson Diet: Regular diet Activity on Discharge: As tolerated Stand Alone Forms: Patient Portal Discharge page, Community Support Print Language: Nepalese Care Plan Goals: maintain mood no SI/HI no aggression towards self or others Health Concerns: follow up with pcp Plan of Treatment: take medications as prescribed go to nearest ED or call 911 in event of emergency Assessment: pt with less labile affect. some residual paranoid delusions, suspiciousness. less hyperverbal. sleeping and eating well. Discharge Date/Time: 12/06/23 09:30
[2023-12-06] MEDS: OLANZapine 10 MG TABLET PO (08:22)
[2023-12-06] MEDS: Atorvastatin Calcium 40 MG TABLET PO (08:23)
[2023-12-06] MEDS: Loratadine 10 MG TABLET PO (08:23)
== END 2023-12-06 09:30 | disposition home or self-care (01) | DRG 885 ==
PROVIDERS: Admitting Provider Psychiatry & Neurology Psychiatry; PCP Internal Medicine Geriatric Medicine; Visit Provider Psychiatry & Neurology Psychiatry
DX: F25.0 Schizoaffective disorder, bipolar type (principal); W19.XXXA Unspecified fall, initial encounter; Z79.899 Other long term (current) drug therapy
CPT/HCPCS: 70450; 72125; 73522; 82947; 94799; J2359

== ENCOUNTER → 2023-11-22 16:28 | Outpatient (BNV) | payer MEDICARE, SELFPAY | PROVIDERS: Admitting Provider Psychiatry & Neurology Psychiatry; Visit Provider Clinical Nurse Specialist Psychiatric/Mental Health, Adult | DX: F25.0 Schizoaffective disorder, bipolar type (principal) | CPT/HCPCS: 90792; 99231; 99232; 99239; 99499 ==

== ENCOUNTER → 2023-11-22 16:28 | Outpatient (BNV) | payer MEDICARE, SELFPAY | PROVIDERS: Admitting Provider Psychiatry & Neurology Psychiatry; Visit Provider Student in an Organized Health Care Education/Training Program | DX: Z02.2 Encounter for examination for admission to residential institution (principal) | CPT/HCPCS: 99429; 99499 ==